=== PATIENT | female | born 1975 | race Caucasian/White ===

== ENCOUNTER 2020-11-29 18:42 | Emergency (ER) | payer SELFPAY ==
[2020-11-29 18:58] VITALS: BP 151/88; PULSE 116; RESP 16; TEMP 37.3; O2SAT 100
--- NOTE | 2020-11-29 19:16 | ED.EYEPROB ---
HPI - Eye Problem General Chief complaint: Eye Problems Stated complaint: Eye Irratation and redness Source: patient and RN notes reviewed Limitations: no limitations History of Present Illness HPI Narrative: The patient, previously mostly healthy on no meds, presents with eye discomfort. Patient states does not wear contacts or eyeglasses, and only has reading glasses . 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 She had the onset of bilateral first right than the left eye redness with watery discharge prior to arrival. 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 She has mild blurring , mild photophobia without distinct foreign body sensation-but does feel grainy. Patient advised to see eye doctor, which she seems to defer [financially?]. Related Data Allergies Allergy/AdvReac Type Severity Reaction Status Date / Time morphine Allergy Severe Itching Verified 11/29/20 19:05 Review of Systems Review of Systems: Narrative: The patient has been informed that they may have pre-hypertension or Hypertension based on a BP reading in the department. I recommend that the patient call the primary care provider listed on their discharge instructions or a physician of their choice this week to arrange follow up for further evaluation of possible pre-hypertension or Hypertension General/Constitutional: No weight loss,fever Eyes: REPORTS redness,discharge Ears/Nose/Throat: No: Epistaxis,ear discharge Respiratory: Denies: Hemoptysis Gastrointestinal: No Vomiting, Bleeding-rectal Skin: No Lumps, eruption Neurologic: No Focal Weakness,Sz Hematologic: Denies: Petechiae/Purpura Psychiatric: No: Suicida ideationl All Other Systems: Reviewed and Negative PMFSH Comments At time of signature, agree with nursing past medical, surgical, social and family history. There is no relevant family history pertinent to the presenting complaint Exam Narrative: Exam Narrative: General Appearance: Well appearing, Well nourished, mild discomfort EYE: Visual acuity VA 20/25 bilaterally, brisk PERRLA 5--3mm, anterior chambers deep ,Yabt-fadkmsmh-[id number] normal, EOMI ,lens normal, abormal corneas -punctate keratopathy fluorescein uptake, Conjunctiva injection Ears: External ear normal, Auditory canal normal Nose: Normal nose, Nares clear Mouth/Throat: Normal appearing, Normal lips Supple, Respiratory: Airway patent, No respiratory distress Skin: Warm, Dry Neurological: A&O x3, CN II-X intact Psychiatric: Normal mood, Normal affect Course Vital Signs Vital signs: Vital Signs Temperature 99.2 F 11/29/20 18:58 Pulse Rate 116 H 11/29/20 18:58 Respiratory Rate 16 11/29/20 18:58 Blood Pressure 151/88 H 11/29/20 18:58 Pulse Oximetry 100 11/29/20 18:58 Temperature 99.2 F 11/29/20 18:58 Pulse Rate 100 11/29/20 20:07 Respiratory Rate 16 11/29/20 18:58 Blood Pressure 130/80 11/29/20 20:07 Pulse Oximetry 100 11/29/20 18:58 Discharge Plan Discharge Clinical Impression: Keratitis Patient Disposition: Home, Self-Care Condition: Stable Instructions: Corneal Flash Sarah (ED) Additional Instructions: See eye doctor without fail[ work release/absence provided for this] You declined hospital referral today; return to hospital if worsens eye dilators Prescriptions: New tropicamide [Mydriacyl] 1 % drops 1 drp EACH EYE BID Qty: 15 RF: 0 ofloxacin [Ocuflox] 0.3 % drops 2 drp EACH EYE QID Qty: 5 RF: 0 tramadol 50 mg tablet 50 - 75 mg PO QID PRN (Reason: pain) Qty: 14 RF: 0 Follow-up/Referrals: PHYSICIAN,MILK DRIVER [Primary Care Provider] - Stand Alone Forms: Work/School Release IP
[2020-11-29 20:07] VITALS: BP 130/80; PULSE 100
== END 2020-11-29 20:10 | disposition home or self-care (01) ==
PROVIDERS: Emergency Provider Emergency Medicine
DX: H16.9 Unspecified keratitis (principal)
CPT/HCPCS: 99213; A9270; G0463

== ENCOUNTER 2021-12-07 09:59 | Emergency (ER) | payer OTHER, SELFPAY ==
--- NOTE | 2021-12-07 10:02 | ED.DIZZY ---
HPI - Dizziness General Chief Complaint: Dizziness Stated Complaint: Dizziness Time Seen by Provider: 12/07/21 10:02 Source: patient Mode of arrival: ambulatory Limitations: no limitations History of Present Illness HPI Narrative: Ms. Sarah is a 46-year-old female patient presenting to the clinic today with complaints of dizziness times. She reports Related Data Allergies Allergy/AdvReac Type Severity Reaction Status Date / Time morphine Allergy Severe Itching Verified 11/29/20 19:05 Review of Systems Review of Systems: Pertinent positives per HPI. Patient denies any fever, chills, rash, headache, visual changes, cough, runny nose, sore throat, shortness of breath, chest pain, palpitations, nausea, vomiting, diarrhea, constipation, abdominal pain, or any urinary issues. PMFSH Comments At the time of my signature, I reviewed and agree with the nursing past medical, surgical, social, and family history. There is no relevant family history pertinent to the patient complaint. Exam Narrative: General: Well-developed, well nourished, in no apparent distress Head: Normocephalic, atraumatic Eyes: Pupils equally round and reactive to light bilaterally, EOM intact, sclera and conjunctive clear, no discharge, lids normal Ears: TMs intact and clear, ear canals clear, no drainage, grossly hearing normal. Nose: Nares patent, no discharge, no inflammation, no sinus tenderness. Mouth: Oropharynx without lesions or masses, good dentition, MMM. Neck: Supple, trachea midline, no enlargement of anterior or posterior cervical nodes, no thyroid masses or goiter palpable. Cardio: Regular rate and rhythm, s1 and s2 normal, no murmur appreciated. Resp: Clear to auscultation bilaterally anteriorly and posteriorly, no rhonchi, rales, wheezing or rubs Course Course Emergency Course: Portions of this record may have been created with voice recognition software. Level of Care: Express Care Visit Vital Signs Vital signs: Vital signs reviewed Discharge Plan Discharge Patient Disposition: Home, Self-Care Condition: Stable Instructions: Antibiotic Form Prescriptions: No Action tropicamide [Mydriacyl] 1 % drops 1 drp EACH EYE BID Qty: 15 0RF ofloxacin [Ocuflox] 0.3 % drops 2 drp EACH EYE QID Qty: 5 0RF tramadol 50 mg tablet 50 - 75 mg PO QID PRN (Reason: pain) Qty: 14 0RF Follow-up/Referrals: UNKNOWN,DOCTOR [Non-Staff] - Quality NIHSS Nursing Documentation ED NIHSS nursing documentation: reviewed/agree
--- NOTE | 2021-12-07 10:03 | ED.DIZZY ---
HPI - Dizziness General Chief Complaint: Dizziness Stated Complaint: Dizziness Time Seen by Provider: 12/07/21 10:02 Source: patient Mode of arrival: ambulatory Limitations: no limitations History of Present Illness HPI Narrative: Patient is a 46-year-old female who presents the urgent care with complaints of dizziness intermittently. Patient states that yesterday it was on and off and after eating she felt much better. Patient states today she felt dizziness after eating chocolate. Patient states that she is currently not having any dizziness and it comes and goes fairly quickly. Denies of any headaches, nausea, vomiting, chest pain, palpitations, vision changes. Patient does have a history of gestational diabetes with both pregnancies and does have diabetes that runs in the family. Patient has not seen a primary care doctor in years nor has she followed up and had any labs completed by any physicians. No other acute complaints. No acute distress noted. Patient aware of the plan of care. Some parts of this dictation were generated by voice recognition software and may contain typographical and/or grammatical inaccuracies. Related Data Home Medications Medication Instructions Recorded Confirmed No Home Medications 12/07/21 12/07/21 Allergies Allergy/AdvReac Type Severity Reaction Status Date / Time morphine Allergy Severe Hives Verified 12/07/21 10:11 Review of Systems Review of Systems: CONSTITUTIONAL: Denies fever, chills, or sweats. EYES: Denies visual changes, redness, or discharge. ENT: Denies rhinorrhea, congestion, sore throat, or otalgia. CARDIOVASCULAR: Denies chest pain, palpitations, or edema. RESPIRATORY: Denies cough or dyspnea. GASTROINTESTINAL: Denies abdominal pain, nausea, vomiting, or diarrhea. GENITOURINARY: Denies dysuria or hematuria. SKIN: Denies rash or itching. MUSCULOSKELETAL: Denies back pain, joint pain, or myalgia. NEUROLOGIC: Denies headache, numbness, or weakness. Reports of intermittent dizziness All other systems reviewed are negative, except as documented in HPI. PMFSH Comments At the time of my signature, I reviewed and agree with the nursing past medical, surgical, social, and family history. There is no relevant family history pertinent to the patient complaint. Exam Narrative: GENERAL: This is a well-nourished, well-developed patient, in no apparent distress. HEAD: normocephalic, atraumatic. EYES: PERRL. Sclera clear/white. Vision is grossly intact. EARS: External ears normal, auditory canals clear and without drainage, TMs normal without perforation. Hearing grossly intact. NOSE: External nose normal with no obvious nasal discharge, nares without redness, no rhinorrhea. THROAT: Mucous membranes moist, posterior pharynx clear. NECK: Neck supple CARDIOVASCULAR: Sinus tachycardia, auscultated 108 bpm, without murmurs, gallops, or rubs. RESPIRATORY: Clear to auscultation. Breath sounds equal bilaterally. No wheezes, rales, or rhonchi. SKIN: warm, intact with no suspicious lesions or rash, good texture and turgor. NEURO: awake, alert, and oriented to person, place and time. There were no obvious focal neurologic abnormalities. EXTREMITIES: No clubbing, cyanosis, or edema. Course Course Level of Care: Express Care Visit Vital Signs Vital signs: Vital Signs Temperature 99.2 F 12/07/21 10:05 Pulse Rate 114 H 12/07/21 10:05 Respiratory Rate 14 12/07/21 10:05 Blood Pressure 154/74 H 12/07/21 10:05 Pulse Oximetry 100 12/07/21 10:05 Oxygen Delivery Room Air 12/07/21 10:05 Temperature 99.2 F 12/07/21 10:12 Pulse Rate 114 H 12/07/21 10:12 Respiratory Rate 14 12/07/21 10:12 Blood Pressure 154/74 H 12/07/21 10:12 Pulse Oximetry 100 12/07/21 10:12 Oxygen Delivery Room Air 12/07/21 10:12 Reviewed-patient is informed that they may have pre-hypertension or hypertension based on a blood pressure reading in the department. I recommend the anna
[2021-12-07 10:05] VITALS: BP 154/74; PULSE 114; RESP 14; TEMP 37.3; O2SAT 100
[2021-12-07 10:12] VITALS: BP 154/74; PULSE 114; RESP 14; TEMP 37.3; O2SAT 100
[2021-12-07 10:30] LABS: Glucose Point of Care 122 mg/dl (65-105)
== END 2021-12-07 10:36 | disposition home or self-care (01) ==
PROVIDERS: Emergency Provider Nurse Practitioner Family
DX: R42 Dizziness and giddiness (principal)
CPT/HCPCS: 82948; 99212; G0463

== ENCOUNTER 2022-01-11 09:30 | Outpatient (CLI) | payer OTHER, SELFPAY ==
[2022-01-11 20:52] LABS: Basophils Percent Auto 0.3 % (0.2-1.2); Eosinophils Absolute Auto 0.1 K/mm3 (0-0.3); Eosinophils Percent Auto 0.5 % (0-4.4); Hematocrit 46.4 % (37.0-47.0); Hemoglobin 14.3 g/dL (12.0-15.0); Immature Granulocyte Absolute 0.03 K/mm3 (0.00-0.031); Immature Granulocyte Percent A 0.3 % (0-0.5); Lymphocytes Absolute Auto 1.54 K/mm3 (0.9-3.2); Lymphocytes Percent Auto 13.5 % (18.3-44.2); Mean Corpuscular HGB Conc 30.8 g/dl (32-36); Mean Corpuscular Hemoglobin 29.1 pg (26-34); Mean Corpuscular Volume 94.5 fl (80-100); Mean Platelet Volume 10.8 fl (7.4-10.4); Monocytes Absolute Auto 0.7 K/mm3 (0.1-0.6); Monocytes Percent Auto 6.3 % (2.6-8.5); Neutrophils Absolute Auto 9.1 K/mm3 (1.3-6.7); Neutrophils Percent Auto 79.1 % (45.5-73.1); Platelet Count Result 376 k/mm3 (150-375); Red Blood Count 4.91 M/mm3 (4.2-5.4); Red Cell Distribution Width 13.3 % (11.5-14.5); White Blood Count 11.4 K/mm3 (4.5-10.0)
[2022-01-11 21:52] LABS: Alanine Aminotransferase 11 U/L (6-35); Albumin Level 4.4 g/dL (3.5-5.1); Alkaline Phosphatase 78 U/L (38-126); Anion Gap 11 mmol/L (8-16); Aspartate Amino Transferase 52 U/L (14-36); Bilirubin,Total 0.4 mg/dL (0.2-1.3); Blood Urea Nitrogen 9 mg/dL (7-17); Calcium 9.1 mg/dL (8.4-10.2); Carbon Dioxide 22 mmol/L (22-30); Chloride 104 mmol/L (98-107); Cholesterol 147 mg/dL (0-200); Estimated Glomerular Filt Rate > 60; Glucose 76 mg/dL (65-110); HDL Direct 46 mg/dL; Potassium 3.7 mmol/L (3.4-5.0); Sodium 137 mmol/L (137-145); Triglycerides 50 mg/dL (<150)
[2022-01-11 22:03] LABS: LDL Cholesterol Direct 78 mg/dL
[2022-01-11 22:04] LABS: Hemoglobin A1C 5.3 % (<5.7)
== END 2022-01-11 09:31 | disposition home or self-care (01) ==
LOC: ANHBWCLAB 09:31
PROVIDERS: PCP Family Medicine; Visit Provider Family Medicine
DX: R42 Dizziness and giddiness (principal); Z00.00 Encounter for general adult medical examination without abnormal findings
CPT/HCPCS: 36415; 80053; 80061; 83036; 85025

== ENCOUNTER 2022-01-15 08:23 | Emergency (ER) | payer OTHER, SELFPAY ==
[2022-01-15 08:27] VITALS: BP 120/70; PULSE 110; RESP 18; TEMP 36.8; O2SAT 99
--- NOTE | 2022-01-15 08:29 | ED.URI ---
HPI - URI/Sore Throat General Chief Complaint: Upper Respiratory Infection Stated Complaint: sore throat Time Seen by Provider: 01/15/22 08:29 Source: patient and RN notes reviewed History of Present Illness HPI Narrative: Patient is a 46-year-old female who presents the urgent care with complaints of a sore throat. Patient states that started 3 days ago and she does have a history of strep however since her tonsils were removed, she has not had strep in many years. Patient denies any fever, nausea or vomiting. Denies any other upper respiratory complaints. Patient states that she does not wear dentures but they do typically not cause any gingival pain or discomfort. No other acute complaints. No acute distress noted. Patient aware of the plan of care. Some parts of this dictation were generated by voice recognition software and may contain typographical and/or grammatical inaccuracies. Related Data Allergies Allergy/AdvReac Type Severity Reaction Status Date / Time morphine Allergy Severe Hives Verified 01/11/22 08:54 Review of Systems Review of Systems: CONSTITUTIONAL: Denies fever, chills, or sweats. EYES: Denies visual changes, redness, or discharge. ENT: Denies rhinorrhea, congestion, or otalgia. Reports of sore throat CARDIOVASCULAR: Denies chest pain, palpitations, or edema. RESPIRATORY: Denies cough or dyspnea. GASTROINTESTINAL: Denies abdominal pain, nausea, vomiting, or diarrhea. GENITOURINARY: Denies dysuria or hematuria. SKIN: Denies rash or itching. MUSCULOSKELETAL: Denies back pain, joint pain, or myalgia. NEUROLOGIC: Denies headache, numbness, or weakness. All other systems reviewed are negative, except as documented in HPI. PMFSH Social History Social History Smoking status: Current every day smoker Comments At the time of my signature, I reviewed and agree with the nursing past medical, surgical, social, and family history. There is no relevant family history pertinent to the patient complaint. Exam Narrative: GENERAL: This is a well-nourished, well-developed patient, in no apparent distress. HEAD: normocephalic, atraumatic. EYES: PERRL. Sclera clear/white. Vision is grossly intact. EARS: External ears normal, auditory canals clear and without drainage, TMs normal without perforation. Hearing grossly intact. NOSE: External nose normal with no obvious nasal discharge, nares without redness, no rhinorrhea. THROAT: Mucous membranes moist. Moderate erythema and edema noted to posterior palate/posterior oropharynx. Normally exudate noted. Absent tonsils. Oral thrush covering the tongue with thick white to yellow NECK: Neck supple, non-tender without lymphadenopathy CARDIOVASCULAR: Regular rate and rhythm without murmurs, gallops, or rubs. RESPIRATORY: Clear to auscultation. Breath sounds equal bilaterally. No wheezes, rales, or rhonchi. SKIN: warm, intact with no suspicious lesions or rash, good texture and turgor. NEURO: awake, alert, and oriented to person, place and time. There were no obvious focal neurologic abnormalities. EXTREMITIES: No clubbing, cyanosis, or edema. Course Course Level of Care: Express Care Visit Vital Signs Vital signs: Vital Signs Temperature 98.2 F 01/15/22 08:27 Pulse Rate 110 H 01/15/22 08:27 Respiratory Rate 18 01/15/22 08:27 Blood Pressure 120/70 01/15/22 08:27 Pulse Oximetry 99 01/15/22 08:27 Oxygen Delivery Room Air 01/15/22 08:27 Temperature 98.2 F 01/15/22 08:27 Pulse Rate 110 H 01/15/22 08:27 Respiratory Rate 18 01/15/22 08:27 Blood Pressure 120/70 01/15/22 08:27 Pulse Oximetry 99 01/15/22 08:27 Oxygen Delivery Room Air 01/15/22 08:27 Reviewed MDM - URI/Sore Throat MDM Narrative Medical decision making narrative: Reviewed lab results with the patient. She is aware that strep swab was negative. Educated patient on culture we will call within 72 hours
== END 2022-01-15 09:07 | disposition home or self-care (01) ==
PROVIDERS: Emergency Provider Nurse Practitioner Family; PCP Family Medicine
DX: B37.0 Candidal stomatitis (principal); J02.9 Acute pharyngitis, unspecified
CPT/HCPCS: 87081; 87880; 99213; G0463

== ENCOUNTER 2022-05-08 09:52 | Emergency (ER) | payer OTHER, SELFPAY ==
--- NOTE | ~2022-05-08 | XR_ITS ---
EXAMINATION: XR chest 2V 05/08/2022 10:47 INDICATION: Cough and congestion PROCEDURE: 2 view chest COMPARISON: 03/19/2008 FINDINGS: The lungs are clear. The cardiomediastinal silhouette is within normal limits. There are no pleural effusions. There is no pneumothorax suspected. IMPRESSION: 1: NO ACUTE CARDIOPULMONARY DISEASE. Reviewed, dictated and finalized at location A. UCT MARKETING SPECIALIST
[2022-05-08 10:00] VITALS: BP 116/76; PULSE 116; RESP 16; TEMP 36.6; O2SAT 100
--- NOTE | 2022-05-08 10:32 | ED.URI ---
HPI - URI/Sore Throat General Chief Complaint: Upper Respiratory Infection Stated Complaint: fever nausea cough Time Seen by Provider: 05/08/22 10:32 Source: patient, RN notes reviewed and old records reviewed Mode of arrival: ambulatory Limitations: no limitations History of Present Illness HPI Narrative: 47-year-old female presents to the [facility] with complaints of fever, cough, nausea and vomiting. Patient states she started with a cough on night. Had nausea vomiting fevers on Sunday and Sunday. Still is having a cough that she can not get rid of. Has taken Robitussin and Tylenol. Denies any fever since Sunday. Denies chest pain or abdominal pain. Patient is a smoker and a vapor Related Data Allergies Allergy/AdvReac Type Severity Reaction Status Date / Time morphine Allergy Severe Hives Verified 05/08/22 10:19 Review of Systems Review of Systems: All systems reviewed & are unremarkable except as noted in HPI and below Constitutional: Constitutional: Reports as per HPI, Denies body ache(s), Denies chills, Reports fatigue, Reports fever(s) and Denies headache(s) Eyes: Eyes: Reports no additional eye complaints ENT: Reports system reviewed and no additional complaints, except as documented and Denies headache(s) Cardiovascular: Cardiovascular: Reports no additional cardiovascular complaints, Denies chest pain and Denies dyspnea Respiratory: Respiratory: Reports as per HPI, Reports cough and Denies dyspnea Gastrointestinal: Gastrointestinal: Reports as per HPI, Denies abdominal pain, Reports nausea and Reports vomiting Musculoskeletal: Musculoskeletal: Reports no additional musculoskeletal complaints Integumentary/Breasts: Skin/Breast: Reports system reviewed and no additional complaints, except as docu Neurologic: Reports system reviewed and no additional complaints, except as documented and Denies headache(s) Psychiatric: Psychiatric: Reports no additional psychiatric complaints Allergic/Immunologic: Allergic/Immunologic: Reports no additional allergic/immunologic complaints PMFSH Social History Social History Smoking status: Current every day smoker Comments At the time of my signature, I reviewed and agree with the nursing past medical, surgical, social, and family history. There is no relevant family history pertinent to the patient complaint. Exam Const: General: cooperative, healthy appearing, comfortable, no acute distress, well developed, alert and well nourished Nutritional Appearance: well nourished Orientation/consciousness: patient oriented x3 Limitations: no limitations HENMT: Head: normal to inspection Ears: external ears normal Face/Nose/Sinus: Normal external nose present, Normal nares present, Normal nasal mucous membranes and turbinates present and normal facial exam Face and sinus: normal facial exam Mouth: Yes Normal oral and palatal mucosa present, Yes lip normal and Yes moist mucous membranes abnormal Eyes: General: appearance normal, both eyes and all related structures Alignment and Position: alignment normal Conjunctivae: conjunctivae normal Pupils: Equal, round and reactive pupils present Neck: Neck: normal visual inspection, full ROM, no lymphadenopathy and no meningeal signs Chest: Chest palpation & inspection: normal inspection of the chest Resp: Effort & Inspection: normal respiratory effort and no use of accessory muscles Auscultation: no crackles, no rales, no rhonchi, no wheezes and diminished lung sounds bilateral in the lower lung salazar Cardio: Rate: regular rate Rhythm: regular rhythm Back/Spine/Pelvis: Cervical Spine: cervical ROM normal and No Cervical spine tenderness Thoracic/Lumbar Spine: thoracic and lumbar spine normal to inspection and thoraco-lumbar ROM normal Skin: General skin exam: normal color Rashes: no rashes Wounds: no wounds Neuro: General: patient oriented x3, moves al
== END 2022-05-08 11:11 | disposition home or self-care (01) ==
PROVIDERS: Emergency Provider Nurse Practitioner; PCP Family Medicine
DX: J40 Bronchitis, not specified as acute or chronic (principal); F17.200 Nicotine dependence, unspecified, uncomplicated
CPT/HCPCS: 71046; 99213; G0463

== ENCOUNTER 2022-05-17 08:19 | Outpatient (CLI) | payer OTHER, SELFPAY ==
[2022-05-17 20:12] LABS: Alanine Aminotransferase 16 U/L (6-35); Albumin Level 4.4 g/dL (3.5-5.1); Alkaline Phosphatase 85 U/L (38-126); Aspartate Amino Transferase 60 U/L (14-36); Bilirubin,Total 0.3 mg/dL (0.2-1.3)
[2022-05-17 20:24] LABS: Hepatitis B Surface Antigen Negative (Negative)
[2022-05-17 20:30] LABS: HAV RESULT Negative (Negative); Hepatitis B Core IgM Result Negative (Negative)
[2022-05-17 20:42] LABS: Hepatitis C Virus Antibody Negative (Negative)
== END 2022-05-17 08:20 | disposition home or self-care (01) ==
LOC: ANHBWCLAB 08:20
PROVIDERS: PCP Family Medicine; Visit Provider Family Medicine
DX: R74.01 Elevation of levels of liver transaminase levels (principal)
CPT/HCPCS: 36415; 80074; 80076

== ENCOUNTER 2022-07-04 09:24 | Outpatient (CLI) | payer OTHER, SELFPAY ==
--- NOTE | ~2022-07-04 | US_ITS ---
Limited Abdominal Sonogram: Real-time sonographic imaging of the right upper quadrant was performed. Clinical History: Abnormal LFTs Findings: The liver appears normal with no evidence of mass lesion or bile duct dilatation. Main por navin vein demonstrates normal direction of flow. The gallbladder is well distended, and appears normal with no evidence of gallstone or wall thickening. The common bile duct measures 4 mm. The visualize d pancreas, aorta, and IVC are unremarkable. Impression: No significant abnormality seen. Reviewed, dictated and finalized at location . UREMENT CONSULTANT Impression: No significant abnormality seen.
== END 2022-07-04 09:25 | disposition home or self-care (01) ==
PROVIDERS: PCP Family Medicine; Visit Provider Family Medicine
DX: R74.01 Elevation of levels of liver transaminase levels (principal)
CPT/HCPCS: 76705

== ENCOUNTER 2023-01-24 08:24 | Outpatient (CLI) | payer OTHER, SELFPAY ==
[2023-01-24 19:35] LABS: Hematocrit 49.9 % (37.0-47.0); Hemoglobin 15.5 g/dL (12.0-15.0); Mean Corpuscular HGB Conc 31.1 g/dl (32-36); Mean Corpuscular Hemoglobin 29.9 pg (26-34); Mean Corpuscular Volume 96.3 fl (80-100); Mean Platelet Volume 10.9 fl (7.4-10.4); Platelet Count Result 395 k/mm3 (150-375); Red Blood Count 5.18 M/mm3 (4.2-5.4); Red Cell Distribution Width 13.4 % (11.5-14.5); White Blood Count 11.5 K/mm3 (4.5-10.0)
[2023-01-24 20:59] LABS: Alanine Aminotransferase 15 U/L (6-35); Albumin Level 4.8 g/dL (3.5-5.1); Alkaline Phosphatase 104 U/L (38-126); Anion Gap 8 mmol/L (8-16); Aspartate Amino Transferase 65 U/L (14-36); Bilirubin,Total 0.5 mg/dL (0.2-1.3); Blood Urea Nitrogen 9 mg/dL (7-17); Calcium 9.4 mg/dL (8.4-10.2); Carbon Dioxide 24 mmol/L (22-30); Chloride 104 mmol/L (98-107); Cholesterol 180 mg/dL (0-200); Estimated Glomerular Filt Rate > 60; Glucose 78 mg/dL (65-110); HDL Direct 48 mg/dL; Potassium 4.4 mmol/L (3.4-5.0); Sodium 136 mmol/L (137-145); Triglycerides 39 mg/dL (<150)
[2023-01-24 21:02] LABS: Hemoglobin A1C 5.1 % (<5.7)
[2023-01-24 21:10] LABS: LDL Cholesterol Direct 101 mg/dL
== END 2023-01-24 08:25 | disposition home or self-care (01) ==
LOC: ANHBWCLAB 08:27
PROVIDERS: PCP Nurse Practitioner Adult Health; Visit Provider Nurse Practitioner Adult Health
DX: Z13.9 Encounter for screening, unspecified (principal); R42 Dizziness and giddiness; R73.9 Hyperglycemia, unspecified
CPT/HCPCS: 36415; 80053; 80061; 83036; 84443; 85027

== ENCOUNTER 2023-03-20 17:18 | Emergency (ER) | payer OTHER, SELFPAY ==
--- NOTE | ~2023-03-20 | XR_ITS ---
EXAMINATION: XR foot LT min 3V DATE: 03/20/2023 17:46 INDICATION: Left foot pain TECHNIQUE: Dorsoplantar, lateral, and 2 oblique views of the left foot were obtained. COMPARISON: None. FINDINGS: No fracture, dislocation, or subluxation. The bones, soft tissues, and joint spaces are nor mal. IMPRESSION: 1. No acute osseous abnormality. Reviewed, dictated and finalized at location F.
[2023-03-20 17:19] VITALS: BP 127/62; PULSE 93; RESP 18; TEMP 37; O2SAT 100
--- NOTE | 2023-03-20 17:35 | ED.LOWEXIN ---
HPI - Extremity Injury (Lower) General Chief Complaint: Extremity Injury, Lower Stated Complaint: L foot pain/injury Time Seen by Provider: 03/20/23 17:30 History of Present Illness HPI Narrative: Patient is a 48-year-old female presenting with left foot pain. Patient states that she was at work pushing a heavy cart which got stuck on something and she ended up twisting her left foot. States that initially it did not hurt very much and she was able to ambulate. When she got home the pain worsened and she was having difficulty with ambulation so she came in for evaluation. States that she took Tylenol and applied ice before coming. No numbness or weakness. Denies ankle or leg pain. Did not strike her head or lose consciousness. Denies further injury or concern. Related Data Home Medications Medication Instructions Recorded Confirmed copper 380 square mm intrauterine 1 device intrauterine ONCE 09/25/22 01/15/23 device (ParaGard T 380A) Allergies Allergy/AdvReac Type Severity Reaction Status Date / Time morphine Allergy Severe Hives Verified 03/20/23 17:29 Review of Systems Review of Systems: All systems reviewed & are unremarkable except as noted in HPI and below PMFSH Surgical History Surgical History H/O hernia repair History of dilatation and curettage Wirt teeth removed Family History Family History Other History of malignant neoplasm Social History Social History Smoking status: Current every day smoker Tobacco type: cigarettes Alcohol intake: never Substance use: never Substance use type: does not use Lack of Transportation: No Lack of Food: Never True Current Housing: I Have Housing Concerned About Future Housing: No Difficulty Paying Gas/Electric Bills: No Difficulty Paying for Meds: No Education: Trade/Vocational Certificate Difficulty w/ Childcare or Family Care: No Occupation/Education: occupation Gender identity (if verbalized by the patient): Female Sexual Orientation (if Verbalized by the Patient): Straight or Heterosexual Spiritual care concerns: No Exam Narrative: GENERAL: Well-appearing, in no acute distress HEAD: Normocephalic, atraumatic. EYES: PERRLA and EOMI. ENT: Grossly unremarkable NECK: Supple. CHEST: No respiratory distress. HEART: Regular rate and rhythm ABDOMEN: Nondistended EXTREMITIES: Left foot with tenderness over the mid dorsal aspect, also tender along the mid plantar aspect, no bruising, no ankle tenderness, DP pulses 2+, sensation intact SKIN: Warm, dry, no rash. NEURO: Alert and oriented x3. PSYCH: Normal mood and affect. Course Vital Signs Vital signs: Vital Signs Temperature 98.6 F 03/20/23 17:19 Pulse Rate 93 03/20/23 17:19 Respiratory Rate 18 03/20/23 17:19 Blood Pressure 127/62 03/20/23 17:19 Pulse Oximetry 100 03/20/23 17:19 Oxygen Delivery Room Air 03/20/23 17:19 Temperature 98.6 F 03/20/23 17:19 Pulse Rate 93 03/20/23 17:19 Respiratory Rate 18 03/20/23 17:19 Blood Pressure 127/62 03/20/23 17:19 Pulse Oximetry 100 03/20/23 17:19 Oxygen Delivery Room Air 03/20/23 17:19 MDM - Extremity Injury (Lower) MDM Narrative Medical decision making narrative: 48-year-old female presenting with left foot pain after twisting it. Vital stable. Exam remarkable for the above. X-ray without acute abnormalities. Will provide crutches to keep weight off the foot. Discussed appropriate supportive care and follow-up. Discharged in stable condition. Differential Diagnosis Differential diagnosis: Likely ankle sprain and strain, fracture of toe, ankle fracture and other (Foot strain) Medical Records Attestation: I reviewed the patient's medical records. Imaging Data Radiologist's impression: I
== END 2023-03-20 18:56 | disposition home or self-care (01) ==
LOC: ANHED 18:37
PROVIDERS: Emergency Provider Emergency Medicine; PCP Family Medicine
DX: S93.602A Unspecified sprain of left foot, initial encounter (principal); X50.0XXA Overexertion from strenuous movement or load, initial encounter; F17.210 Nicotine dependence, cigarettes, uncomplicated
CPT/HCPCS: 73630; 99283

== ENCOUNTER 2024-09-27 00:07 | Emergency (ER) | payer SELFPAY ==
[2024-09-27] VITALS (8 sets, daily range): BP systolic 110–158; BP diastolic 54–71; PULSE 74–96; RESP 12–20; TEMP 36.5; O2SAT 97–100
--- NOTE | ~2024-09-27 | XR_ITS ---
EXAMINATION: XR chest 2V DATE: 09/27/2024 01:01 INDICATION: Chest pain TECHNIQUE: PA and lateral views of the chest were obtained. COMPARISON: Chest radiograph dated 05/08/2022 FINDINGS: Mild atelectasis at the posterior lung base on the lateral projection. No other airspace opacities, p ulmonary edema, pleural effusion or pneumothorax. The cardiomediastinal silhouette is normal. Visuali zed bones and soft tissues are unremarkable. IMPRESSION: 1. Mild atelectasis at the posterior lung bases. Reviewed, dictated and finalized at location A.
--- OUTSIDE RECORDS SUMMARY | 2024-09-27 00:09 | XMS_ITS | Clinical Summary ---
Author Organization [facility] Address [address] [place] [address] Care Team Providers Care Media Marketing Coordinator Name Role Phone Unavailable Primary Care Provider Unavailabl e Source Comments [facility],non-owned Affiliates and Associated Physician Practices is amultiple site organization consisting of ambulatory clinics and hospital sitesin [place], [place], [place] and [place]. This disclosure is being madepursuant to the Care Everywhere program and may not contain all information available regarding this patient. Last updated 18.[facility] [email or web address] Allergies Active Allergy Reactions Criticality Noted Date Comments Morphine Urticaria 10/27/2008 Medications * Be aware that medications may not be up to date on this document. Alwaysverify current medications with the patient. Vit-Fe Fumarate-FA ( VITAMIN) 28-0.8 MG tablet Take 1 Tab by mouth once daily. Active oxyCODONE-acetam inophen (PERCOCET) 5-325 MG tablet Take 2 Tabs by mouth every 4 hours as needed for Pain. 11/29/2013 Active ibuprofen (MOTRIN) 600 MG tablet Take 1 Tab by mouth every 6 hours as needed for Pain. 11/29/2013 Active Active Problems Problem Noted Date Diagnosed Date Gestational diabetes 11/27/2013 Elderly multigravida with an tepartum condition or complication 07/25/2013 Encounter for supervision of other normal pregna ncy 07/11/2013 Overview (04/18/2015): Dating: first trimester undoc. Scan A+/I-/- HIV NR Immunizations Immunization Administration Dates Next Due PNEUMOCOCCAL PPSV23 11/29/2013 TDAP (7yrs+) 11/29/2013 Family History Medical History Relation Name Comments Cancer Maternal Grandfather Cancer Maternal Grandmother Relation Name Status Comments Maternal Grandfather Maternal Grandmother Social History Tobacco Use Types Packs/Day Years Used Date Smoking Tobacco: Every Day Cigarettes Smokeless Tobacco: Never Tobacco Cessation:Ready to Q uit: No; Counseling Given: Yes Alcohol Use Standard Drinks/Week Comments No 0 (1 standard drink = 0.6 oz pur e alcohol) Comments No Sex and Gender Information Value Date Recorded Sex Assigned at Not on file 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 Gender Identity Not on file Sexual Orientation Not on file Last Filed Vital Signs Vital Sign Reading Time Taken Comments Blood Pressure 118/64 11/30/2020 4:06 PM CDT Pulse 79 11/30/2020 4:06 PM CDT Temperature 36.5 C (97.7 F) 11/30/2020 4:06 PM CDT Respiratory Rate 18 11/30/2020 4:06 PM CDT Oxygen Saturation 100% 11/30/2020 4:06 PM CDT Inhaled Oxygen Concentration - - Weight 53.1 kg (117 lb) 11/30/2020 11:40 AM CDT Height 162.6 cm (5' 4 ) 11/30/2020 11:40 AM CDT Body Mass Index 20.08 11/30/2020 11:40 AM CDT Plan of Treatment Health Maintenance Due Date Last Done Comments COLOGUARD (AGES 45-75) - COL ON CA SCREENING 1976 COLON MONITORING 1976 COLONOSCOPY - COLON CA SCREENING 1976 CT COLONOGRAPHY - COLON CA SCREENING 1976 Colorectal Cancer Screening 1976 FIT - COLON CA SCREENING 1976 FLEX SIG - COLON CA SCREENING 1976 LIPID TESTING 1976 MAMMOGRAM 1976 PAP SMEAR 1976 HIV SCREENING 01/22/1991 HEPATITIS C SCREENING 01/18/1994 HEPATITIS B VACCINE (1 of 3 - 19+ 3-dose series) 01/22/1995 PNEUMOCOCCAL VACCINE (2 of 2 - PCV) 11/29/2014 11/29/2013 DTAP/TDAP/TD VACCINES (2 - T d or Tdap) 11/30/2023 11/29/2013 COVID-19 VACCINE (1 - 2023-2 5 season) 2024 DEPRESSION SCREENING 06/11/2024 INFLUENZA VACCINE (Season Ended) 2025 ZOSTER VACCINE (1 of 2) 01/22/2026 HIB VACCINE Aged Out No longer eligi ble based on patient's age to complete this topic HPV VACCINE Aged Out No longer eligi ble based on patient's age to complete this topic MENINGOCOCCAL (Group B) VACC INE SHARED DECISION-MAKING Aged Out No longer eligibl e based on patient's age to complete this topic MENINGOCOCCAL GROUPS A/C/Y/W VACCINE Aged Out No longer eligible b ased on patient's age to complete this topic Insurance [place] MEDICA[place] - AET[place] [facility] Advance Directives * Full Code (Latest Code Status on File) Date Activated Date Inactivated Comments 11/27/2013 7:52 PM 11/29/2013 8:36 PM * FULL RESUSCITATION Date Activated Date Inactivated Comments 06/21/2013 4:02 PM 06/21/2013 5:44 PM
--- OUTSIDE RECORDS SUMMARY | 2024-09-27 00:09 | XMS_ITS | Encounter Summary ---
Author Organization [facility] Address [address] [place] [address] Care Team Providers Care Financial Services Education Consultant Name Role Phone Unavailable Primary Care Provider Unavailabl e Encounter Details Date Type Department Care Team (Late st Contact Info) Description 11/30/2020 Ophth Exam [facility] [address] [place] [address] Vicenta Bill MD No info available Social History Tobacco Use Types Packs/Day Years Used Date Smoking Tobacco: Every Day Cigarettes Smokeless Tobacco: Never Alcohol Use Standard Drinks/Week Comments No 0 (1 standard drink = 0.6 oz pur e alcohol) Comments No Sex and Gender Information Value Date Recorded Sex Assigned at Not on file 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 Answer Date of Assessment Author No 11/27/2013 8:44 PM CDT Lizy Reno APRN-CNP * Is person blind or have serious difficulty seeing? Answer Date of Assessment Author No 11/27/2013 8:44 PM CDT Lizy Reno APRN-CNP * Does person have serious difficulty walking/climbing stairs? Answer Date of Assessment Author No 11/27/2013 8:44 PM CDT Lizy Reno APRN-CNP * Does person have difficulty dressing/bathing? Answer Date of Assessment Author No 11/27/2013 8:44 PM CDT Lizy Reno APRN-CNP * Does person have difficulty doing errands alone? Answer Date of Assessment Author No 11/27/2013 8:44 PM Lizy Malagon APRN-CNP documented as of this encounter Mental Status * Does person have difficulty concentrating/remembering/making decisions? Answer Entry Date Author No 11/27/2013 8:44 PM Lizy Malagon APRN-CNP documented in this encounter Plan of Treatment Not on file documented as of this encounter Visit Diagnoses Not on filedocumented in this encounter
--- NOTE | 2024-09-27 00:16 | ECG_ITS ---
Test Date: 2024-09-27 00:22:59 Measurements Intervals [place] Rate: 96 P: 79 WI: 135 QRS: 74 QRSD: 82 T: 51 QT: 351 QTc: 444 Interpretive Statements SINUS RHYTHM MINIMAL Q WAVES- INFERIOR LEADS BASELINE ARTIFACT- II, III, AVR, AVL, AVF BORDERLINE ECG No previous ECG available for comparison Electronically Signed On 09-27-2024 07:05:10 CDT by Elliot Villagomez D.O.
--- NOTE | 2024-09-27 00:46 | PC.NURSE ---
Addendum entered by Tova Solis RN 09/27/24 00:48: Attempted to medicate patient with PO ASA. Pt does not have her dentures and is unable to chew tablets. Original Note: PIV attempt x4 by this RN and additional RN. Awaiting straight stick attempt for blood. Pt medicated as per mar with ASA. Remains on full monitor, VS as charted.
--- OUTSIDE RECORDS SUMMARY | 2024-09-27 00:51 | XMS_ITS | Encounter Summary ---
Author Organization [facility] Health Address [address] [place] [address] Care Team Providers Care Senior Information Security Consultant Name Role Phone Unavailable Primary Care Provider Unavailabl e Encounter Details Date Type Department Care Team (Late st Contact Info) Description 11/30/2020 Ophth Exam [facility] [address] [place] [address] Vicenta Bill MD No info available Social History Tobacco Use Types Packs/Day Years Used Date Smoking Tobacco: Every Day Cigarettes Smokeless Tobacco: Never Alcohol Use Standard Drinks/Week Comments No 0 (1 standard drink = 0.6 oz pur e alcohol) Comments No Sex and Gender Information Value Date Recorded Sex Assigned at Not on file 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
--- OUTSIDE RECORDS SUMMARY | 2024-09-27 00:51 | XMS_ITS | Clinical Summary ---
Author Organization [facility] Address [address] [place] [address] Care Team Providers Care Optometric Aide Name Role Phone Unavailable Primary Care Provider Unavailabl e Source Comments [facility],non-owned Affiliates and Associated Physician Practices is amultiple site organization consisting of ambulatory clinics and hospital sitesin [place], [place], [place] and [place]. This disclosure is being madepursuant to the Care Everywhere program and may not contain all information available regarding this patient. 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
[2024-09-27 01:01] LABS: Basophils Percent Auto 0.4 % (0.2-1.2); Eosinophils Absolute Auto 0.1 K/mm3 (0-0.3); Eosinophils Percent Auto 1.1 % (0-4.4); Hematocrit 40.3 % (37.0-47.0); Hemoglobin 13.2 g/dL (12.0-15.0); Immature Granulocyte Absolute 0.03 K/mm3 (0.00-0.031); Immature Granulocyte Percent A 0.3 % (0-0.5); Lymphocytes Absolute Auto 1.78 K/mm3 (0.9-3.2); Mean Corpuscular HGB Conc 32.8 g/dl (32-36); Mean Corpuscular Hemoglobin 29.9 pg (26-34); Mean Corpuscular Volume 91.2 fl (80-100); Mean Platelet Volume 9.4 fl (7.4-10.4); Monocytes Absolute Auto 0.7 K/mm3 (0.1-0.6); Monocytes Percent Auto 5.9 % (2.6-8.5); Neutrophils Absolute Auto 8.5 K/mm3 (1.3-6.7); Neutrophils Percent Auto 76.3 % (45.5-73.1); Platelet Count Result 354 k/mm3 (150-375); Red Blood Count 4.42 M/mm3 (4.2-5.4); Red Cell Distribution Width 12.7 % (11.5-14.5); White Blood Count 11.1 K/mm3 (4.5-10.0)
[2024-09-27 01:13] LABS: Partial Thromboplastin Time 26.9 Seconds (22.3-36.8)
[2024-09-27 01:17] LABS: Alanine Aminotransferase 12 U/L (6-35); Albumin Level 3.8 g/dL (3.5-5.1); Alkaline Phosphatase 87 U/L (38-126); Anion Gap 9 mmol/L (4-12); Aspartate Amino Transferase 19 U/L (14-36); Bilirubin,Total < 0.1 mg/dL (0.2-1.3); Blood Urea Nitrogen 12 mg/dL (7-17); Calcium 8.5 mg/dL (8.4-10.2); Carbon Dioxide 20 mmol/L (22-30); Chloride 111 mmol/L (98-107); Estimated CRCL calculation 85 ml/min; Estimated Glomerular Filt Rate > 60; Glucose 109 mg/dL (65-110); Lipase 81 U/L (23-300); Potassium 3.7 mmol/L (3.4-5.0); Sodium 140 mmol/L (137-145)
[2024-09-27 01:28] LABS: Prothrombin Time 13.4 Seconds (11.1-14.7)
[2024-09-27 01:29] LABS: Troponin I < 0.012 ng/mL (0.000-0.034)
[2024-09-27] MEDS: PANTOPRAZOLE SODIUM IV 40 MG VIAL IV PUSH (02:13)
[2024-09-27] MEDS: SODIUM CHLORIDE 0.9% INJ 10 ML (02:17)
--- NOTE | 2024-09-27 03:09 | ED.CHESTPAIN ---
HPI - Chest Pain General Chief Complaint: Chest Pain Stated Complaint: chest pain, dizzy, right arm pain Time Seen by Provider: 09/27/24 00:22 History of Present Illness HPI narrative: Patient is a 49-year-old female who presents the emergency department this evening complaining of right-sided chest that started to radiate to her left side 3 hours prior to arrival. Patient states that she also felt generally weak and lightheaded, denies any shortness of breath, nausea vomiting or abdominal pain. Denies any recent illness, fevers or chills. Patient also denies any history of cardiovascular disease. States that she has she arrived to the emergency department her pain has subsided. Denies any additional symptoms or concerns at this time. Related Data Home Medications ?Medication ?Instructions ?Recorded ?Confirmed ?Last Taken ?Type copper 380 square mm intrauterine 1 device intrauterine ONCE 09/25/22 01/15/23 Unknown History device (ParaGard T 380A) Allergies Allergy/AdvReac Type Severity Reaction Status Date / Time morphine Allergy Severe Hives Verified 09/27/24 00:44 Review of Systems Review of Systems: All systems are reviewed and are negative unless stated otherwise in the HPI. [facility] Surgical History Surgical History Gillespie teeth removed History of dilatation and curettage H/O hernia repair Family History Family History Other History of malignant neoplasm Social History Social History Smoking status: Current every day smoker Tobacco type: cigarettes Alcohol intake: never Substance use: never Substance use type: does not use Lack of Transportation: No Lack of Food: Never True Current Housing: I Have Housing Concerned About Future Housing: No Difficulty Paying Gas/Electric Bills: No Difficulty Paying for Meds: No Education: Trade/Vocational Certificate Difficulty w/ Childcare or Family Care: No Occupation/Education: occupation Gender identity (if verbalized by the patient): Female Sexual Orientation (if Verbalized by the Patient): Straight or Heterosexual Spiritual care concerns: No Exam Narrative: General: Alert, awake, afebrile, in no acute distress. HEENT: PERRL, no rhinorrhea, no post nasal drip, oropharynx clear. Neck: Trachea midline, no JVD, no lymphadenopathy. Cardiovascular: Regular rate and rhythm, no murmurs, rubs or gallops, no peripheral edema. Respiratory: Clear to auscultation bilaterally, no tachypnea, no wheezing, no rhonchi, no rubs, no respiratory distress. Abdomen: Soft, nontender, nondistended, no rebound, no guarding, no peritoneal signs. Musculoskeletal: No joint swelling or deformity, normal muscle tone. Skin: No rashes or petechia, no signs of infection. Psychiatric: Alert and oriented, normal behavior and judgment for situation. Neurological: Alert and oriented to person, place, and time. Follows all commands. No focal deficits, speech is clear and fluent. Course Vital Signs Vital signs: Vital Signs Temperature 97.7 F 09/27/24 00:14 Pulse Rate 96 09/27/24 00:14 Respiratory Rate 16 09/27/24 00:14 Blood Pressure 158/69 H 09/27/24 00:14 Pulse Oximetry 100 09/27/24 00:14 Oxygen Delivery Room Air 09/27/24 00:14 Temperature 97.7 F 09/27/24 00:14 Pulse Rate 74 09/27/24 04:30 Respiratory Rate 20 09/27/24 03:13 Blood Pressure 110/63 09/27/24 04:30 Pulse Oximetry 99 09/27/24 04:30 Oxygen Delivery Room Air 09/27/24 00:51 MDM - Chest Pain MDM Narrative Medical decision making narrative: The patient was evaluated by myself in the emergency department. History is obtained from patient who is an independent historian and physical exam was performed. External medical records were reviewed at this time. IV was established and pertinent tests were ordered. Patient was administered 1 L IV fluid bolus with normal saline and 40 mg of IV Protonix. EKG was obtained which revealed sinus rhythm rate 96 beats per minute, no evidence of acute ischemia. EKG was independently interpreted by me and is currently pending official cardiology read. Laboratory results obtained revealing no acute process. Two sets of troponins were obtained both noted to be negative. Imaging studies obtained included CXR which was independently interpreted by me revealing no acute cardiopulmonary process, which is pending final radiology interpretation. Differential diagnosis considerations include acute coronary syndrome Comorbidities impacting this visit include none. I have evaluated and discussed social determinants of health with the patient that could potentially impact subsequent diagnosis and treatment plans. On repeat assessment of the patient, reevaluation revealed that the patient is doing well and is in no acute distress. Patient symptoms have improved since she arrived to our emergency department. Repeat vital signs were all reviewed and noted to be stable. Differential diagnosis and treatment plan were discussed with the patient at bedside. Patient agrees with discussion and after shared medical decision making agrees with discharge. All questions were answered to the patient's satisfaction. Patient will follow up with Cardiology in 3-5 days. Patient was provided with strict return precautions and instructed to return to the emergency department if any new or worsening symptoms develop. The patient was discharged in stable condition. Lab Data 09/27/24 00:55 09/27/24 00:55 Labs: Lab Results 09/27/24 09/27/24 Range/Units 00:55 03:47 WBC 11.1 H (4.5-10.0) K/mm3 RBC 4.42 (4.2-5.4) M/mm3 Hgb 13.2 (12.0-15.0) g/dL Hct 40.3 (37.0-47.0) % MCV 91.2 (80-100) fl MCH 29.9 (26-34) pg MCHC 32.8 (32-36) g/dl RDW 12.7 (11.5-14.5) % Plt Count 354 (150-375) k/mm3 MPV 9.4 (7.4-10.4) fl Immature Gran % (Auto) 0.3 (0-0.5) % Neut % (Auto) 76.3 H (45.5-73.1) % Lymph % (Auto) 16.0 L (18.3-44.2) % [place] % (Auto) 5.9 (2.6-8.5) % Eos % (Auto) 1.1 (0-4.4) % Baso % (Auto) 0.4 (0.2-1.2) % Lymph # (Auto) 1.78 (0.9-3.2) K/mm3 [place] # (Auto) 0.7 H (0.1-0.6) K/mm3 Eos # (Auto) 0.1 (0-0.3) K/mm3 Baso # (Auto) 0.0 (0.0-0.1) K/mm3 Abs Immat Gran (auto) 0.03 (0.00-0.031) K/mm3 Absolute Neuts (auto) 8.5 H (1.3-6.7) K/mm3 Absolute Nucleated RBC 0.000 (0.0-0.012) K/mm3 Nucleated RBC % 0.0 (0.0-0.2) % PT 13.4 (11.1-14.7) Seconds INR 1.0 APTT 26.9 (22.3-36.8) Seconds Sodium 140 (137-145) mmol/L Potassium 3.7 (3.4-5.0) mmol/L Chloride 111 H (98-107) mmol/L Carbon Dioxide 20 L (22-30) mmol/L Anion Gap 9 (4-12) mmol/L BUN 12 (7-17) mg/dL Creatinine 0.56 L (0.7-1.0) mg/dL Estim Creat Clear Calc 85 ml/min Estimated GFR > 60 (59 - ) Glucose 109 (65-110) mg/dL Calcium 8.5 (8.4-10.2) mg/dL Total Bilirubin < 0.1 L (0.2-1.3) mg/dL AST 19 (14-36) U/L ALT 12 (6-35) U/L Alkaline Phosphatase 87 (38-126) U/L Troponin I < 0.012 < 0.012 (0.000-0.034) ng/mL Total Protein 6.0 L (6.3-8.2) g/dL Albumin 3.8 (3.5-5.1) g/dL Lipase 81 (23-300) U/L Discharge Plan Discharge Clinical Impression: Chest pain Patient Disposition: Home Condition: Improved Instructions: Antibiotic Form, Chest Pain (ED) Additional Instructions: Please follow-up with the car packer you were provided with today regarding your chest within the next 3-5 days. Return to the emergency department if any new or worsening symptoms develop. Patient Language: Kenyan Prescriptions: No Action ParaGard T 380A 380 square mm intrauterine device 1 device intrauterine ONCE Rx Instructions: as a single dose (DME) OneTouch Verio test strips Strip See Rx Instructions .Route Qty: 100 3RF Rx Instructions: Test blood sugar bid Follow-up/Referrals: Elliot Villagomez DO [Physician] - 3 Days Abdoulaye Wick MD [Primary Care Provider] - Time of Disposition: 05:15
--- NOTE | 2024-09-27 03:12 | PC.NURSE ---
Received report from KARLEY Bernardo for cont. of care. Pt lying on stretcher, respirations even and unlabored. Pt denies pain and/or discomfort at this time.
[2024-09-27 04:15] LABS: Troponin I < 0.012 ng/mL (0.000-0.034)
== END 2024-09-27 05:23 | disposition home or self-care (01) ==
PROVIDERS: Emergency Provider Emergency Medicine; PCP Family Medicine
DX: R07.9 Chest pain, unspecified (principal); F17.210 Nicotine dependence, cigarettes, uncomplicated
CPT/HCPCS: 36415; 71046; 80053; 83690; 84484; 85025; 85610; 85730; 93005; 96374; 99284; A9270; J2470

== ENCOUNTER 2024-12-03 13:40 | Outpatient (CLI) | payer OTHER, SELFPAY ==
--- NOTE | 2024-12-15 16:34 | WPDHOLTEREM ---
Holter/Event Monitor Holter/Event Monitor Date of procedure: 12/03/24 Holter/Event Procedure: 3-7 Day Holter Monitor Indications: Diseases of circulatory system Conclusion: 1. 3 days holter monitor on 12/03/24. 2. Predominant rhythm is sinus rhythm. HR range 58-146 bpm; average HR 90 bpm. 3. There are rare premature supraventricular complexes. There is 1 episode of supraventricular tachycardia at 146 bpm lasting 7 beats. 4. There are rare premature ventricular complexes. No ventricular tachycardia. 5. No significant pauses greater than 3 seconds. 6. Patient reports 4 episodes of symptoms of chest pain, lightheadedness which demonstrate sinus rhythm, HR range 82-122 bpm.
== END 2024-12-03 13:41 | disposition home or self-care (01) ==
LOC: ANHCARD 13:43
PROVIDERS: PCP Physician Assistant; Visit Provider Physician Assistant
DX: I49.1 Atrial premature depolarization (principal); I47.10 Supraventricular tachycardia, unspecified; I49.3 Ventricular premature depolarization; Z86.79 Personal history of other diseases of the circulatory system
CPT/HCPCS: 93242

== ENCOUNTER 2025-01-13 14:23 | Outpatient (CLI) | payer OTHER, SELFPAY ==
--- NOTE | ~2025-01-13 | MM_ITS ---
EXAMINATION: screening [facility] BI w ginny INDICATION: Asymptomatic, referred for screening mammogram COMPARISON: Baseline. TECHNIQUE: Digital Breast Tomosynthesis CC, MLO views of Both breasts were obtained with computer-ai ded detection to assist in interpretation of the study. FINDINGS: There are scattered areas of fibroglandular density. There is an asymmetry seen on the cc view in the retroareolar at posterior third left breast. In digna tion, there is an asymmetry seen on the cc view in the medial, middle depth left breast. Elsewhere, there are no mammographic features of malignancy. IMPRESSION: 1. Left breast asymmetries. 2. No evidence of malignancy in the Right breast. RECOMMENDATION: Left breast Diagnostic mammogram with true lateral, appropriate spot compression views and an ultraso und if needed. BI-RADS Category 0: Incomplete: Needs additional imaging evaluation. Reviewed, dictated and finalized at location B. IMPRESSION: 1. Left breast asymmetries. 2. No evidence of malignancy in the Right breast. RECOMMENDATION: Left breast Diagnostic mammogram with true lateral, appropriate spot compressio n views and an ultrasound if needed. BI-RADS Category 0: Incomplete: Needs additional imaging evaluation.
--- OUTSIDE RECORDS SUMMARY | 2025-01-13 14:33 | XMS_ITS | Clinical Summary ---
Author Organization [facility] Address [address] [place] [address] Phone Care Team Providers Care Process Checker Name Role Phone Enoc Govea Alessandra GALLEGOS Primary Care Provider [phone] Allergies Active Allergy Reactions Criticality Noted Date Comments Morphine Hives 04/04/2018 Medications HYDROcodone-acet aminophen (NORCO) 5-325 MG Tablet Take 1 Tab by mouth every 6 hours as needed for Mild or more severe pain. 10 Tab 04/04/2018 Active Encounters Date Type Department Care Team Description 11/15/2024 Travel from Last 3 Months Social History Tobacco Use Types Packs/Day Years Used Date Smoking Tobacco: Every Day Cigarettes Smokeless Tobacco: Never Alcohol Use Standard Drinks/Week Comments No 0 (1 standard drink = 0.6 oz pur e alcohol) Comments Unknown Sex and Gender Information Value Date Recorded Sex Assigned at Not on file Legal Sex Female 12:38 PM CDT Gender Identity Not on file Sexual Orientation Not on file Last Filed Vital Signs Vital Sign Reading Time Taken Comments Blood Pressure 138/80 04/04/2018 12:49 PM CDT Pulse 80 04/04/2018 2:46 PM CDT Temperature 36.1 C (97 F) 04/04/2018 12:49 PM CDT Respiratory Rate 14 04/04/2018 2:46 PM CDT Oxygen Saturation 98% 04/04/2018 2:46 PM CDT Inhaled Oxygen Concentration - - Weight 53.1 kg (117 lb) 04/04/2018 12:49 PM CDT Height 162.6 cm (5' 4) 04/04/2018 12:49 PM CDT Body Mass Index 20.08 04/04/2018 12:49 PM CDT Plan of Treatment Health Maintenance Due Date Last Done Comments Hepatitis C Virus (HCV) Screening 1976 Mammogram 1976 Hepatitis B Immunization (1 of 3 - 19+ 3-dose series) 01/22/1995 Pap Smear 01/22/1997 Cervical Cancer Screening (CCS) 01/22/2006 HPV/Cotest 01/22/2006 Discussion re Starting/Frequ ency of Mammograms 2016 Cologuard 01/22/2021 Colonoscopy 01/22/2021 Colorectal Cancer Screening 01/22/2021 Immunochemical Fecal Occult Blood 01/22/2021 SARS-COV-2 Immunization ( season) 2024 Influenza Immunization (#1) 2025 Respiratory Syncytial Virus (RSV) Immunization (Adult) (1 - 1-dose 75+ series) 01/22/2051 Pneumococcal Immunization Combined Aged Out 2013 No longer eligible based on patient's age to complete this topic TdaP Immunization Completed 11/29/2013 Human Papillomavirus (HPV) Immunization Aged Out No longer eligible b ased on patient's age to complete this topic Meningococcal Immunization (ACWY) Aged Out No longer eligible based on patient's age to complete this topic Rotavirus Immunization Aged Out No lo nger eligible based on patient's age to complete this topic Procedures Procedure Name Priority Date/Time Associated Diagnosis Comments LIPID PANEL Today 11/15/2024 7:41 AM CDT Personal history of nutritional deficiency CMP (COMPREHENSIVE METABOLIC PANEL) Today 11/15/2024 7:41 AM CDT Personal history of nutritional deficiency COMPLETE BLOOD COUNT (CBC) WITHOUT DIFF Today 11/15/2024 7:41 AM CDT Personal history of nutritional deficiency from Last 3 Months Results * LIPID PANEL (11/15/2024 7:41 AM CDT) CHOLESTEROL 169 <200 mg/dL 11/15/2024 9:03 AM CDT [facility] TRIGLYCERIDES 48 <150 mg/dL 11/15/2024 9:03 AM CDT [facility] HDL CHOLESTEROL 41 >40 mg/dL 9:03 AM CDT [facility] LDL 118 <130 mg/dL 11/15/2024 9:03 AM CDT [facility] VLDL 10 10 - 50 mg/dL 11/15/2024 9:03 AM CDT [facility] CHOL/HDL RATIO 4.1 0.0 - 4.4 11/15/2024 9:03 AM CDT [facility] NON-HDL CHOLESTEROL 128 <130 mg/dL 11/15/2024 9:03 AM CDT [facility] IS THE PATIENT REQUIRED TO BE FASTING? Yes 11/15/2024 9:03 AM CDT [facility] HAS THE PATIENT BEEN FASTING? Yes 11/15/2024 9:03 AM CDT [facility] Blood Venipuncture / Unknown 11/15/2024 7:41 AM CDT 11/15/2024 8:38 AM CDT Enoc Govea PAC CHEMISTRY ORDERABLES Final Re sult [facility] [address] [place] [address] * COMPLETE BLOOD COUNT (CBC) WITHOUT DIFF (11/15/2024 7:41 AM CDT) WBC 11.58 4.00 - 12.00 10(3)/mcL 11/15/2024 8:46 AM CDT [facility] RBC 5.00 3.80 - 5.30 10(6)/mcL 11/15/2024 8:46 AM CDT [facility] HEMOGLOBIN (HGB) 14.8 12.0 - 15.8 g/dL 11/15/2024 8:46 AM CDT [facility] HEMATOCRIT (HCT) 45.4 36.0 - 47.0 % 11/15/2024 8:46 AM CDT [facility] MCV 90.8 82.0 - 96.0 fL 11/15/2024 8:46 AM CDT [facility] MCH 29.6 26.0 - 34.0 pg 11/15/2024 8:46 AM CDT [facility] MCHC 32.6 31.0 - 36.0 g/dL 11/15/2024 8:46 AM CDT [facility] PLATELET COUNT 365 140 - 440 10(3)/mcL 11/15/2024 8:46 AM CDT [facility] RDW 12.6 11.8 - 15.5 % 11/15/2024 8:46 AM CDT [facility] MPV 10.5 9.7 - 12.4 fL 11/15/2024 8:46 AM CDT [facility] Blood Venipuncture / Unknown 11/15/2024 7:41 AM CDT 11/15/2024 8:38 AM CDT us Enoc Govea PAC HEMATOLOGY ORDERABLES Final R esult [facility] [address] [place] [address] * (ABNORMAL) CMP (COMPREHENSIVE METABOLIC PANEL) (11/15/2024 7:41 AM CDT) SODIUM 140 136 - 145 mmol/L 11/15/2024 9:03 AM CDT [facility] POTASSIUM 3.7 3.5 - 5.1 mmol/L 11/15/2024 9:03 AM CDT [facility] CHLORIDE 110(H) 98 - 107 mmol/L 11/15/2024 9:03 AM CDT [facility] CO2, VENOUS 20(L) 22 - 30 mmol/L 11/15/2024 9:03 AM CDT [facility] ANION GAP 13.7 <18.0 mmol/L 11/15/2024 9:03 AM CDT [facility] GLUCOSE 91 70 - 99 mg/dL 11/15/2024 9:03 AM [facility] BUN 11 5 - 18 mg/dL 11/15/2024 9:03 AM [facility] CREATININE, BLOOD 0.53(L) 0.60 - 1.00 mg/dL 11/15/2024 9:03 AM [facility] BUN/CREATININE RATIO 21(H) 12 - 20 ratio 11/15/2024 9:03 AM [facility] TOTAL PROTEIN 7.1 6.0 - 8.0 g/dL 11/15/2024 9:03 AM [facility] ALBUMIN 4.1 3.5 - 5.0 g/dL 11/15/2024 9:03 AM [facility] A/G RATIO 1.4 1.0 - 2.2 11/15/2024 9:03 AM [facility] CALCIUM 8.7 8.7 - 10.5 mg/dL 11/15/2024 9:03 AM [facility] T BILI 0.3 0.2 - 1.2 mg/dL 11/15/2024 9:03 AM [facility] SGOT (AST) 23 <43 U/L 11/15/2024 9:03 AM [facility] SGPT (ALT) 13 <56 U/L 11/15/2024 9:03 AM [facility] ALKALINE PHOSPHATASE 93 40 - 150 U/L 11/15/2024 9:03 AM [facility] IS THE PATIENT REQUIRED TO BE FASTING? No 11/15/2024 9:03 AM [facility] GFR, ESTIMATED >60 >=60 11/15/2024 9:03 AM [facility] Comment: Creatinine Clearance is the preferred criteria for selecting drug dose adjustments in renally impaired patients. The GFR is provided as additional pertinent clinical information. GFR is reported in mL/min/1.73 sq m. Calculation based on the Chronic Kidney Disease Epidemiology Collaboration (CKD- EPI) equation refit without adjustment for race. GFR, EST. >60 >=60 025 9:03 AM CDT [facility] GFR, EST. NONAFRICAN >60 >=60 11/15/2024 9:03 AM CDT [facility] Blood Venipuncture / Unknown 11/15/2024 7:41 AM CDT 11/15/2024 8:38 AM CDT Enoc Govea PAC CHEMISTRY ORDERABLES Final Re sult [facility] [address] [place] [address] from Last 3 Months Insurance [facility] Care Teams Process Checker Relationship Specialty Start Date End Date Enoc Govea PAC [address] [place] [id number] PCP - General Physician Aircraft Electronics Technical Officer 11/15/24
--- OUTSIDE RECORDS SUMMARY | 2025-01-13 14:33 | XMS_ITS | Clinical Summary ---
Author Organization [facility] Address [address] [place] [id number] Care Team Providers Care Assistant Manager Bilingual Name Role Phone Jeferson Enoc BAEZ Primary Care Provider [phone] Encounters Date Type Department Care Team Description 12/29/2024 11:49 AM CDT - 12/29/2024 11:59 PM CDT Hospital Encounter [facility] [address] [place] [address] Kenn Hernandez MD Discharge Disposition: Home or Self Care (Routine Discharge) 12/29/2024 Travel from Last 3 Months Social History Tobacco Use Types Packs/Day Years Used Date Smoking Tobacco: Never Assessed Comments Unknown Sex and Gender Information Value Date Recorded Sex Assigned at Female 12/29/2024 11:47 AM CDT Legal Sex Female 1:34 PM CDT Gender Identity Not on file Sexual Orientation Not on file Plan of Treatment Health Maintenance Due Date Last Done Comments Cervical Cancer Screening Pa p Smear (Age 30 to 64) Every 3 Years 1976 Colorectal Cancer Screening Colonoscopy (10 Years) 1976 Annual Physical 01/22/1979 Hepatitis C 01/22/1994 Hepatitis B Vaccines (1 of 3 - 19+ 3-dose series) 01/22/1995 Cervical Cancer Screening Pa p with HPV Testing (Age 30 to 64) Every 5 Years 01/22/2006 Cervical Cancer Screening with HPV 01/22/2006 Mammogram Screening 2016 DTaP, Tdap and Td Vaccines ( 2 - Td or Tdap) 11/30/2023 11/29/2013 COVID-19 Vaccine (2023-2 5 season) 2024 Pneumococcal Vaccine: Pediat rics (0 to 5 Years) and At-Risk Patients (6 to 49 Years) Aged Out 11/29/2013 No longer eligi ble based on patient's age to complete this topic Meningococcal B Vaccine Aged Out No l onger eligible based on patient's age to complete this topic Meningococcal Vaccine Aged Out No sean renetta eligible based on patient's age to complete this topic RSV Immunizations Under 20 Months Aged Out No longer eligible based on patient's age to complete this topic Procedures Procedure Name Priority Date/Time Associated Diagnosis Comments CT HEART SCREEN CALCIUM SCORE PROMO Routine 12/29/2024 12:14 PM CDT Screening, ischemic heart disease Family history of ischemic heart disease and other diseases of the circulatory system from Last 3 Months Results * CT HEART SCREEN CALCIUM SCORE PROMO (12/29/2024 12:14 PM CDT) Anatomical Region Laterality Modality Chest Computed Tomogra phy 12/29/2024 12:5 3 PM CDT Impressions 12/29/2024 12:54 PM CDT IMPRESSION: 1. Total Cardiac Calcium Score: 0 - a negative examination. No identifiable atherosclerotic plaque. This implies a very low, generally less than 5% risk of coronary artery disease. 2. Emphysema. Ordered By: SEKOU CHENEY Interpreted By: Ruben Watson, 12/29/2024 12:53 PM Narrative 12/29/2024 12:54 PM CDT [address] [address] EXAMINATION: CT HEART SCREEN CALCIUM SCORE PROMO INDICATIONS: Encounter for screening for cardiovascular disorders, Family history of ischemic heart disease and other diseases of the circulatory system TECHNIQUE: Multislice helical CT images of the proximal coronary arteries with a computer generated calcification score. Automated exposure control was utilized for dose reduction. FINDINGS: Calcium scoring: Right Coronary: 0 Left Main: 0 Left Anterior Descendin Left Circumflex: 0 Total Score: 0 Extra coronary findings: Heart size is normal. No pericardial effusion. The aorta is normal in caliber. The central airways are patent without endobronchial lesion. No mediastinal or bulky hilar adenopathy. Paraseptal emphysema. The visualized lungs are clear without consolidation, effusion, or suspicious pulmonary nodule. No suspicious visceral lesion, adenopathy, or ascites within visualized upper abdomen. No acute or aggressive osseous abnormality. Calcium score guidelines: Total Score* Calcium Plaque [place] *Risk *Probability of significant CAD 0 No Plaque Very Low Very unlikely 1-10 Minimal Plaque Low Unlikely 11-100 Mild Plaque Moderate Low likelihood of significant stenosis <50% 101-400 Moderate Plaque Moderately High Moderate likelihood of significant stenosis (>50%) Over 400 Extensive Plaque High High likelihood of significant stenosis (>50%) The amount of coronary artery calcification correlates with the severity of coronary atherosclerosis and the probability of future significant event. Calcification is not site specific for stenosis and does not identify non-calcified atherosclerotic plaque, but rather indicates the extent of atherosclerosis in the coronary arteries overall. The score may be used as an indicator for risk factor modification or additional cardiac testing. Significant change in calcium score over time may be indicative of subsequent disease development or useful as a benchmark to assess preventative programs. Procedure Note Ruben Watson MD - 12/29/2024 [place] [id number] EXAMINATION: CT HEART SCREEN CALCIUM SCORE PROMO INDICATIONS: Encounter for screening for cardiovascular disorders, Familyhistory of ischemic heart disease and other diseases of the circulatorysystem TECHNIQUE: Multislice helical CT images of the proximal coronary arterieswith a computer generated calcification score. Automated exposure controlwas utilized for dose reduction. FINDINGS: Calcium scoring: Right Coronary: 0 Left Main: 0 Left Anterior Descendin Left Circumflex: 0 Total Score: 0 Extra coronary findings: Heart size is normal. No pericardial effusion. The aorta is normal in caliber. The central airways are patent without endobronchial lesion. No mediastinal or bulky hilar adenopathy. Paraseptal emphysema. The visualized lungs are clear without consolidation, effusion, orsuspicious pulmonary nodule. No suspicious visceral lesion, adenopathy, or ascites within visualizedupper abdomen. No acute or aggressive osseous abnormality. Calcium score guidelines: Total Score* Calcium Plaque [place] *Risk *Probability ofsignificant CAD 0 No Plaque Very LowVery unlikely 1-10 Minimal Plaque LowUnlikely 11-100 Mild Plaque ModerateLow likelihood of significant stenosis <50% 101-400 Moderate Plaque Moderately HighModerate likelihood of significant stenosis (>50%) Over 400 Extensive Plaque HighHigh likelihood of significant stenosis (>50%) The amount of coronary artery calcification correlates with the severityof coronary atherosclerosis and the probability of future significantevent. Calcification is not site specific for stenosis and does not identify non- calcifiedatherosclerotic plaque, but rather indicates the extent of atherosclerosisin the coronary arteries overall. The score may be used as an indicator for risk factor modification oradditional cardiac testing. Significant change in calcium score over timemay be indicative of subsequent disease development or useful as a benchmark to assess preventativeprograms. IMPRESSION: 1. Total Cardiac Calcium Score: 0 - a negative examination. Noidentifiable atherosclerotic plaque. This implies a very low, generallyless than 5% risk of coronary artery disease. 2. Emphysema. Ordered By: SEKOU CHENEY Interpreted By: Ruben Watson, 12/29/2024 12:53 PM us Sekou Cheney MD CT Final Result from Last 3 Months Care Teams Assistant Manager Bilingual Relationship Specialty Start Date End Date Enoc Govea PA [address] [place] [address] PCP - General PHYSICIAN ARBORIST REPRESENTATIVE 12/26/24
--- OUTSIDE RECORDS SUMMARY | 2025-01-13 14:33 | XMS_ITS | Encounter Summary ---
Author Organization [facility] Address [address] [place] [address] Care Team Providers Care Woodwind Reeds Cutter Name Role Phone Unavailable Primary Care Provider Unavailabl e Encounter Details Date Type Department Care Team (Late st Contact Info) Description 11/30/2020 Ophth Exam [facility] [address] [place] [address] Vicenta Bill MD No info available Social History Tobacco Use Types Packs/Day Years Used Date Smoking Tobacco: Every Day Cigarettes Smokeless Tobacco: Never Alcohol Use Standard Drinks/Week Comments No 0 (1 standard drink = 0.6 oz pur e alcohol) Comments No Sex and Gender Information Value Date Recorded Sex Assigned at Not on file 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
--- OUTSIDE RECORDS SUMMARY | 2025-01-13 14:33 | XMS_ITS | Clinical Summary ---
Author Organization [facility] Address [address] [facility] [place] [address] Care Team Providers Care Garment Worker Name Role Phone Unavailable Primary Care Provider Unavailabl e Source Comments [facility],non-owned Affiliates and Associated Physician Practices is amultiple site organization consisting of ambulatory clinics and hospital sitesin [place], [place], [place] and [place]. This disclosure is being madepursuant to the Care Everywhere program and may not contain all information available regarding this patient. Last updated 18.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 Gender Identity Not on file Sexual Orientation [...] 11:40 AM CDT Height 162.6 cm (5' 4) 11/30/2020 11:40 AM CDT Body Mass Index [...] SCREENING 1976 LIPID TESTING 1976 MAMMOGRAM 1976 HIV SCREENING 01/22/1991 HEPATITIS C SCREENING 01/18/1994 HEPATITIS B VACCINE (1 of 3 - 19+ 3-dose series) 01/22/1995 PAP SMEAR 01/22/1997 PNEUMOCOCCAL VACCINE (2 of 2 - PCV) 11/29/2014 11/29/2013 DTAP/TDAP/TD VACCINES (2 - T d or Tdap) 11/30/2023 11/29/2013 COVID-19 VACCINE (1 2023-2 5 season) 2024 DEPRESSION SCREENING 06/11/2024 INFLUENZA VACCINE (#1) 2025 ZOSTER VACCINE (1 of 2) 01/22/2026 [...] complete this topic Insurance [place] [facility] Advance Directives * Full Code (Latest Code Status on File) Date Activated Date Inactivated Comments 11/27/2013 7:52 PM 11/29/2013 8:36 PM * FULL RESUSCITATION Date Activated Date Inactivated Comments 06/21/2013 4:02 PM 06/21/2013 5:44 PM
== END 2025-01-13 14:24 | disposition home or self-care (01) ==
PROVIDERS: PCP Physician Assistant; Visit Provider Nurse Practitioner Women's Health
DX: Z12.31 Encounter for screening mammogram for malignant neoplasm of breast (principal); N64.89 Other specified disorders of breast
CPT/HCPCS: 77063; 77067

== ENCOUNTER 2025-01-22 08:55 | Outpatient (CLI) | payer OTHER, SELFPAY ==
--- NOTE | ~2025-01-22 | MMUS_ITS ---
EXAMINATION: MM diagnostic julio c LT w gniny, US breast LT limited HISTORY: Follow-up left breast asymmetries TECHNIQUE: Additional 3-D tomosynthesis images of the left breast were performed and synthetic 2-D im ages were generated. CAD analysis was submitted and interpreted. High resolution Limited left breast ultrasound was performed. COMPARISON: 01/13/2025 BREAST PARENCHYMAL COMPOSITION: Not dense: There are scattered areas of fibroglandular density. FINDINGS: MAMMOGRAPHIC FINDINGS: Left breast asymmetries compress with spot views. No discrete mass, cluster of calcifications or arch itectural distortion are identified to suggest malignancy. ULTRASOUND: Limited left breast ultrasound: At 12:00, 5 cm from the nipple there is a oval cystic structure measu ring 5 x 3 x 2 mm which likely represents a benign cyst or focally dilated duct. No suspicious masses are identified to suggest malignancy. IMPRESSION: 1. No evidence for malignancy in the left breast. 2. Routine yearly screening mammogram and regular clinical breast examination are recommended. BI-RADS Category 2: Benign finding(s). Reviewed, dictated and finalized at location A. IMPRESSION: 1. No evidence for malignancy in the left breast. 2. Routine yearly screening mammogram and regular clinical breast examination a re recommended. BI-RADS Category 2: Benign finding(s).
--- OUTSIDE RECORDS SUMMARY | 2025-01-22 09:05 | XMS_ITS | Clinical Summary ---
Author Organization [facility] Address [address] [facility] [place] [address] Care Team Providers Care Shop Fitter Name Role Phone Unavailable Primary Care Provider Unavailabl e Source Comments [facility],non-owned Affiliates and Associated Physician Practices is amultiple site organization consisting of ambulatory clinics and hospital sitesin [place], [place], [place] and [place]. This disclosure is being madepursuant to the Care Everywhere program and may not contain all information available regarding this patient. 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 Advance Directives * Full Code (Latest Code Status on File) Date Activated Date Inactivated Comments 11/27/2013 7:52 PM 11/29/2013 8:36 PM * FULL RESUSCITATION Date Activated Date Inactivated Comments 06/21/2013 4:02 PM 06/21/2013 5:44 PM
--- OUTSIDE RECORDS SUMMARY | 2025-01-22 09:05 | XMS_ITS | Clinical Summary ---
Author Organization [facility] Address [address] [place] [address] Phone Care Team Providers Care Maitre D Name Role Phone Enoc Govea Alessandra GALLEGOS Primary Care Provider [phone] Allergies Active Allergy Reactions Criticality Noted Date [...] <200 mg/dL 11/15/2024 9:03 AM CDT [facility] TRIGLYCERIDES 48 <150 mg/dL 11/15/2024 9:03 AM CDT [facility] HDL CHOLESTEROL 41 >40 mg/dL 9:03 AM CDT [facility] LDL 118 <130 mg/dL 11/15/2024 9:03 AM CDT [facility] VLDL 10 10 - 50 mg/dL 11/15/2024 9:03 AM CDT [facility] CHOL/HDL RATIO 4.1 0.0 - 4.4 11/15/2024 9:03 AM CDT [facility] NON-HDL CHOLESTEROL 128 <130 mg/dL 11/15/2024 9:03 AM CDT [facility] IS THE PATIENT REQUIRED TO BE FASTING? Yes 11/15/2024 9:03 AM CDT [facility] HAS THE PATIENT BEEN FASTING? Yes 11/15/2024 9:03 AM CDT [facility] Blood Venipuncture / Unknown 11/15/2024 7:41 AM CDT 11/15/2024 8:38 AM CDT Enoc Govea PAC CHEMISTRY ORDERABLES Final Re sult [facility] [address] [place] [address] * COMPLETE BLOOD COUNT (CBC) WITHOUT DIFF (11/15/2024 7:41 AM CDT) WBC 11.58 4.00 - 12.00 10(3)/mcL 11/15/2024 8:46 AM CDT [facility] RBC 5.00 3.80 - 5.30 10(6)/mcL 11/15/2024 8:46 AM CDT [facility] HEMOGLOBIN (HGB) 14.8 12.0 - 15.8 g/dL 11/15/2024 8:46 AM CDT [facility] HEMATOCRIT (HCT) 45.4 36.0 - 47.0 % 11/15/2024 8:46 AM CDT [facility] MCV 90.8 82.0 - 96.0 fL 11/15/2024 8:46 AM CDT [facility] MCH 29.6 26.0 - 34.0 pg 11/15/2024 8:46 AM CDT [facility] MCHC 32.6 31.0 - 36.0 g/dL 11/15/2024 8:46 AM CDT [facility] PLATELET COUNT 365 140 - 440 10(3)/mcL 11/15/2024 8:46 AM CDT [facility] RDW 12.6 11.8 - 15.5 % 11/15/2024 8:46 AM CDT [facility] MPV 10.5 9.7 - 12.4 fL 11/15/2024 8:46 AM CDT [facility] Blood Venipuncture / Unknown 11/15/2024 7:41 AM CDT 11/15/2024 8:38 AM CDT us Enoc Govea PAC HEMATOLOGY ORDERABLES Final R esult [facility] [address] [place] [address] * (ABNORMAL) CMP (COMPREHENSIVE METABOLIC PANEL) (11/15/2024 7:41 AM CDT) SODIUM 140 136 - 145 mmol/L 11/15/2024 9:03 AM CDT [facility] POTASSIUM 3.7 3.5 - 5.1 mmol/L 11/15/2024 9:03 AM CDT [facility] CHLORIDE 110(H) 98 - 107 mmol/L 11/15/2024 9:03 AM CDT [facility] CO2, VENOUS 20(L) 22 - 30 mmol/L 11/15/2024 9:03 AM CDT [facility] ANION GAP 13.7 <18.0 mmol/L 11/15/2024 9:03 AM CDT [facility] GLUCOSE 91 70 - 99 mg/dL 11/15/2024 9:03 AM [facility] BUN 11 5 - 18 mg/dL 11/15/2024 9:03 AM [facility] CREATININE, BLOOD 0.53(L) 0.60 - 1.00 mg/dL 11/15/2024 9:03 AM [facility] BUN/CREATININE RATIO 21(H) 12 - 20 ratio 11/15/2024 9:03 AM [facility] TOTAL PROTEIN 7.1 6.0 - 8.0 g/dL 11/15/2024 9:03 AM [facility] ALBUMIN 4.1 3.5 - 5.0 g/dL 11/15/2024 9:03 AM [facility] A/G RATIO 1.4 1.0 - 2.2 11/15/2024 9:03 AM [facility] CALCIUM 8.7 8.7 - 10.5 mg/dL 11/15/2024 9:03 AM [facility] T BILI 0.3 0.2 - 1.2 mg/dL 11/15/2024 9:03 AM [facility] SGOT (AST) 23 <43 U/L 11/15/2024 9:03 AM [facility] SGPT (ALT) 13 <56 U/L 11/15/2024 9:03 AM [facility] ALKALINE PHOSPHATASE 93 40 - 150 U/L 11/15/2024 9:03 AM [facility] IS THE PATIENT REQUIRED TO BE FASTING? No 11/15/2024 9:03 AM [facility] GFR, ESTIMATED >60 >=60 11/15/2024 9:03 AM [facility] Comment: Creatinine Clearance is the preferred criteria for selecting drug dose adjustments in renally impaired patients. The GFR is provided as additional pertinent clinical information. GFR is reported in mL/min/1.73 sq m. Calculation based on the Chronic Kidney Disease Epidemiology Collaboration (CKD- EPI) equation refit without adjustment for race. GFR, EST. >60 >=60 025 9:03 AM CDT [facility] GFR, EST. NONAFRICAN >60 >=60 11/15/2024 9:03 AM CDT [facility] Blood Venipuncture / Unknown 11/15/2024 7:41 AM CDT 11/15/2024 8:38 AM CDT Enoc Govea PAC CHEMISTRY ORDERABLES Final Re sult [facility] [address] [place] [address] from Last 3 Months Insurance [facility] Care Teams Maitre D Relationship Specialty Start Date End Date Enoc Govea PAC [address] [place] [phone] PCP - General Physician Multimedia Production Assistant 11/15/24
--- OUTSIDE RECORDS SUMMARY | 2025-01-22 09:05 | XMS_ITS | Encounter Summary ---
Author Organization [facility] Address [address] [place] [address] Care Team Providers Care Final Finisher Forging Dies Name Role Phone Unavailable Primary Care Provider Unavailabl e Encounter Details Date Type Department Care Team (Late st Contact Info) Description 11/30/2020 Ophth Exam [facility] [address] [place] [address] Vicenta Bill MD No info available Social History Tobacco Use Types Packs/Day Years Used Date Smoking Tobacco: Every Day Cigarettes Smokeless Tobacco: Never Alcohol Use Standard Drinks/Week Comments No 0 (1 standard drink = 0.6 oz pur e alcohol) Comments No Sex and Gender Information Value Date Recorded Sex Assigned at Not on file 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
== END 2025-01-22 08:56 | disposition home or self-care (01) ==
LOC: CHSIMG 08:57
PROVIDERS: PCP Physician Assistant; Visit Provider Nurse Practitioner Women's Health
DX: Z12.31 Encounter for screening mammogram for malignant neoplasm of breast (principal)
CPT/HCPCS: 76642; 77061; 77065; G0279